=== PATIENT | male | born 1965 | race Caucasian/White ===

== ENCOUNTER 2024-09-17 06:57 | Day surgery (SDC) | payer BC ==
[2024-09-17] MEDS ORDERED: Lidocaine 2% 100 MG/5 ML Syringe IVPUSH ONE (06:58)
[2024-09-17] MEDS ORDERED: Propofol 200 MG/20 ML SDV IV ONE (06:58)
[2024-09-17] MEDS ORDERED: Midazolam 1 MG/ML 2 ML SDV IV ONE (06:58)
[2024-09-17] MEDS ORDERED: Sodium Chloride 0.9% 10 ML Syringe FLUSH PRN (07:00)
[2024-09-17] MEDS: Lactated Ringers 1,000 ML IV SCH (08:15)
[2024-09-17] MEDS: Simethicone Drops 40 MG/0.6 ML 30 ML Bottle ONE (08:32)
== END 2024-09-17 10:08 | disposition home or self-care (01) ==
LOC: FB.SDS 06:57
PROVIDERS: ATTEND Surgery
DX: Z12.11 Encounter for screening for malignant neoplasm of colon (principal); D12.6 Benign neoplasm of colon, unspecified; K63.5 Polyp of colon; K57.30 Diverticulosis of large intestine without perforation or abscess without bleeding
CPT/HCPCS: 00811; 88305; A9270-GY; J2250; J2704; J7120

== ENCOUNTER 2025-09-08 06:18 | Day surgery (SDC) | payer BC ==
[~2025-09-08 06:18] MED LIST: Sodium Chloride 0.9% 10 ML Syringe FLUSH PRN
[2025-09-08] MEDS ORDERED: Midazolam 1 MG/ML 2 ML SDV IV ONE (06:19)
[2025-09-08] MEDS ORDERED: Ondansetron 4 MG/2 ML SDV IVPUSH ONE (06:19)
[2025-09-08] MEDS ORDERED: Ketamine 500 mg/10 ML MDV IV ONE (06:19)
[2025-09-08] MEDS ORDERED: Propofol 200 MG/20 ML SDV IV ONE (06:19)
[2025-09-08] MEDS ORDERED: Ketorolac 30 MG/ML SDV IVPUSH ONE (06:19)
[2025-09-08] MEDS ORDERED: Dexamethasone 4 MG/ML 5 ML MDV IVPUSH ONE (06:19)
[2025-09-08] MEDS ORDERED: fentaNYL 100 MCG/2 ML SDV IV ONE (06:19)
[2025-09-08] MEDS: Lactated Ringers 1,000 ML IV SCH (06:47)
[2025-09-08] MEDS: Lidocaine 1% with EPINEPHrine 1:100,000 20 ML MDV INJECT ONE ×2 (07:22)
== END 2025-09-08 09:45 | disposition home or self-care (01) ==
LOC: FB.SDS 06:18
PROVIDERS: ATTEND Surgery
DX: K42.0 Umbilical hernia with obstruction, without gangrene (principal); Z91.048 Other nonmedicinal substance allergy status; Z79.899 Other long term (current) drug therapy
CPT/HCPCS: 00790; 49592; J0665; J0690; J1100; J1885; J2003; J2004; J2250; J2405; J2704; J3010; J3490; J7120